=== PATIENT | male | born 1985 | race African-American/Black ===

== ENCOUNTER 2019-06-30 10:45 | Inpatient (IN) | payer OTHER ==
[2019-06-30 10:57] VITALS: BMI 31.0
--- NOTE | 2019-06-30 11:28 | HP ---
COWS - Scale Resting Pulse: 0= [place] 80 or Below Sweatin= Chills/Flushing Restless Observation: 1= Difficult to Sit Still Pupil Size: 1= Pupils >than Normal Bone or Joint Aches: 2= Severe Diffuse Aches Runny Nose/ Eye Tearin= Runny Nose/Eyes GI Upset > 30mins: 3= Vomiting/Diarrhea Tremor Observation: 2= Slight Tremor Visible Yawning Observation: 1= 1-2x During Session Anxiety or Irritability: 1=Feels Anxious/Irritable Goose Flesh Skin: 3=Piloerection COWS Score: 17 CIWA Score - Admission Criteria [facility] Guidelines: Admission for Medically Managed Detox: Requires at least one of the followin. CIWA greater than 12 2. Seizures within the past 24 hours 3. Delirium tremens within the past 24 hours 4. Hallucinations within the past 24 hours 5. Acute intervention needed for co occurring medical disorder 6. Acute intervention needed for co occurring psychiatric disorder 7. Severe withdrawal that cannot be handled at a lower level of care (continued vomiting, continued diarrhea, abnormal vital signs) requiring intravenous medication and/or fluids 8. Admission ROS [facility] Chief Complaint: I need detox Allergies/Adverse Reactions: Allergies Allergy/AdvReac Type Severity Reaction Status Date / Time No Known Allergies Allergy Verified 06/30/19 10:52 History of Present Illness: 33 year old male presents for detox from heroin. He reports his last detox treatment was at [facility] sometime last year. He denies previous overdose or seizures related to drug use. Exam Limitations: No Limitations - Ebola screening Have you traveled outside of the country in the last 21 days: No Have you had contact with anyone from an Ebola affected area: No Have you been sick,other than usual withdrawal symptoms: No Do you have a fever: No - Review of Systems Constitutional: Chills, Diaphoresis, Loss of Appetite EENT: reports: Blurred Vision, Nose Congestion Respiratory: reports: No Symptoms reported Cardiac: reports: No Symptoms Reported GI: reports: Poor Appetite, Poor Fluid Intake, Abdominal cramping : reports: No Symptoms Reported Musculoskeletal: reports: Back Pain, Joint Pain, Muscle Pain, Muscle Weakness Integumentary: reports: Flushing Neuro: reports: Tremors Endocrine: reports: No Symptoms Reported Hematology: reports: No Symptoms Reported Psychiatric: reports: No Sypmtoms Reported Other Systems: Reviewed and Negative Patient History - Patient Medical History Hx Anemia: No Hx Asthma: No Hx Chronic Obstructive Pulmonary Disease (COPD): No Hx Cancer: No Hx Cardiac Disorders: No Hx Congestive Heart Failure: No Hx Hypertension: No Hx Hypercholesterolemia: No Hx Pacemaker: No HX Cerebrovascular Accident: No Hx Seizures: No Hx Dementia: No Hx Diabetes: No Hx Gastrointestinal Disorders: No Hx Liver Disease: No Hx Genitourinary Disorders: No Hx Sexually Transmitted Disorders: No Hx Renal Disease (ESRD): No Hx Thyroid Disease: No Hx Human Immunodeficiency Virus (HIV): No Hx Hepatitis C: No Hx Depression: No Hx Suicide Attempt: No Hx Bipolar Disorder: No Hx Schizophrenia: No - Patient Surgical History Past Surgical History: No - PPD History Previous Implant?: Yes Documented Results: Negative w/o proof Implanted On Prior [facility] Admission?: No PPD to be Administered?: Yes - Smoking Cessation Smoking history: Current every day smoker Have you smoked in the past 12 months: Yes Aproximately how many cigarettes per day: 20 Hx Chewing Tobacco Use: No Initiated information on smoking cessation: Yes 'Breaking Loose' booklet given: 06/30/19 - Substances abused Heroin Substance route: Inhalation Frequency: Daily Amount used: 9 BAGS Age of first use: 17 Date of last use: 06/29/19 Admission Physical Exam [facility] - Vital Signs Vital Signs: Vital Signs - 24 hr 06/30/19 10:51 Temperature 99.1 F Pulse Rate 60 Respiratory 20 Rate Blood Pressure 153/99 - Physical General Appearance: Yes: No Apparent Distress, Tremorous HEENTM: Yes: Hearing grossly Normal, Normocephalic, Normal Voice, Pharynx Normal Respiratory: Yes: Chest Non-Tender, Lungs Clear, Normal Breath Sounds, No Respiratory Distress, No Accessory Muscle Use Neck: Yes: No masses,lesions,Nodules, Supple Breast: Yes: Breast Exam Deferred Cardiology: Yes: Regular Rhythm, Regular Rate, S1, S2 Abdominal: Yes: Normal Bowel Sounds, Non Tender Genitourinary: Yes: Within Normal Limits Back: Yes: Normal Inspection Musculoskeletal: Yes: full range of Motion, Gait Steady, Pelvis Stable, Back pain, Muscle Pain, Muscle weakness Extremities: Yes: Non-Tender, Tremors Neurological: Yes: sap hana architect II-XII NML intact, Fully Oriented, Alert, Normal Mood/ Affect, Normal Response Integumentary: Yes: Clammy Lymphatic: Yes: Within Normal Limits - Diagnostic (1) Heroin dependence Current Visit: Yes Status: Acute (2) Nicotine dependence Current Visit: Yes Status: Acute Qualifiers: Nicotine product type: cigarettes Substance use status: uncomplicated Qualified Code(s): F17.210 - Nicotine dependence, cigarettes, uncomplicated Cleared for Admission [facility] - Detox or Rehab [facility] Level of Care: Medically Managed Detox Regimen/Protocol: Methadone Claeared for Rehab Admission: No Breathalyzer - Breathalyzer Breathalyzer: 0 Urine Drug Screen - Test Device Lot number: [id number] Expiration date: 02/16/21 - Control Is test valid?: Yes - Results Drug screen NEGATIVE: Yes Urine drug screen results: THC-Marijuana, JOSE-Cocaine, FEN-Fentanyl, MOP-Opiates , BUP-Suboxone Inpatient Rehab Admission - Rehab Decision to Admit Inpatient rehab admission?: No
[2019-06-30] MEDS ORDERED: ACETAMINOPHEN 325 MG TABLET (FP) PO PRN ×2 (11:32)
[2019-06-30] MEDS ORDERED: MELATONIN 5 MG TABLETS PO PRN (11:32)
[2019-06-30] MEDS ORDERED: IBUPROFEN 400 MG TABLET (FP) PO PRN (11:32)
[2019-06-30] MEDS ORDERED: NICOTINE POLACRILEX 2 MG GUM BUC PRN (11:32)
[2019-06-30] MEDS ORDERED: MENTHOL/PHENOL 1 EACH UD MM PRN (11:32)
[2019-06-30] MEDS ORDERED: NALOXONE HCL 0.4 MG/ML VIAL IM PRN (11:32)
[2019-06-30] MEDS ORDERED: BISMUTH SUBSALICYLATE 524 MG/30 ML UD PO PRN (11:32)
[2019-06-30] MEDS ORDERED: MAGNESIUM CITRATE 300 ML BOTTLE PO PRN (11:32)
[2019-06-30] MEDS ORDERED: MAG HYDROX/AL HYDROX/SIMETH 30 ML UNIT-DOSE CUP PO PRN (11:32)
[2019-06-30] MEDS ORDERED: cloNIDine HCL 0.1 MG TABLET PO PRN (11:32)
[2019-06-30] MEDS ORDERED: METHOCARBAMOL 500 MG TABLET PO PRN (11:32)
[2019-06-30] MEDS ORDERED: MAGNESIUM HYDROX 2400MG/30ML ORAL SUSPENSION 30 ML CUP PO PRN (11:32)
[2019-06-30] MEDS ORDERED: METHADONE HCL 10 MG TABLET (FOR DETOX USE ONLY) PO ONE ×2 (12:00→20:20)
--- NOTE | 2019-06-30 12:24 | PN ---
[facility] Progress Note Note: Patient admitted for heroin detox, methadone regimen ordered. EKG pre-methadone administration came out abnormal; suggestive of acute OH / STEMI. EMS activated , report given to provider at [facility] ED. At time of admission patient denied chest pain, currently c/o chest pain. EMS at bedside.
[2019-06-30] MEDS: cloNIDine HCL 0.1 MG TABLET PO PRN (22:27)
[2019-06-30] MEDS: THIAMINE HCL 100 MG TABLET (FP) PO SCH (22:27)
[2019-06-30] MEDS: NICOTINE 7 MG/24 HOURS TOPICAL PATCH TD SCH (22:33)
[2019-07-01] MEDS ORDERED: METHADONE HCL 5 MG TABLET (FOR DETOX USE ONLY) PO ONE ×2 (10:00)
[2019-07-01] MEDS: PRENATAL VITAMINS W/ FOLIC ACID TABLET (FP) PO SCH (10:05)
[2019-07-01] MEDS: NICOTINE 7 MG/24 HOURS TOPICAL PATCH TD SCH (10:05)
[2019-07-01 10:23] LABS: HEMATOCRIT 42.5 % (35.4-49); MCH 28.9 pg (25.7-33.7); MCHC 32.9 g/dl (32.0-35.9); MEAN PLT VOLUME 10.4 fl (7.5-11.1); PLATELET COUNT 223 K/MM3 (134-434); RBC 4.83 M/mm3 (4.00-5.60); RDW 14.5 % (11.9-15.9); WHITE BLOOD COUNT 6.6 K/mm3 (4.0-10.0)
[2019-07-01 10:26] LABS: ALBUMIN 3.4 g/dl (3.4-5.0); BILIRUBIN,TOTAL 0.6 mg/dL (0.2-1); BLOOD UREA NITROGEN 11.7 mg/dL (7-18); CALCIUM 8.9 mg/dL (8.5-10.1); POTASSIUM 3.5 mmol/L (3.5-5.1); TOT PROT 6.8 g/dl (6.4-8.2)
--- NOTE | 2019-07-01 11:47 | PN ---
S COWS - Scale Resting Pulse: 0= [place] 80 or Below Sweatin= Beads of Sweat on Face Restless Observation: 1= Difficult to Sit Still Pupil Size: 0= Normal to Room Light Bone or Joint Aches: 2= Severe Diffuse Aches Runny Nose/ Eye Tearin= None GI Upset > 30mins: 0= None Tremor Observation of Outstretched Hands: 2= Slight Tremor Visible Yawning Observation: 1= 1-2x During Session Anxiety or Irritability: 2=Irritable/Anxious Goose Flesh Skin: 0=Smooth Skin COWS Score: 11 S Progress Note (SOAP) Subjective: c/o muscle aches, anxiety, irritability, and sweats. Objective: 07/01/19 11:47 Vital Signs 07/01/19 07/01/19 06:41 09:15 Temperature 97.2 F L 98.5 F Pulse Rate 50 L 54 L Respiratory 18 18 Rate Blood Pressure 138/87 130/83 Lab Results WBC 6.6 K/mm3 (4.0-10.0) 07/01/19 07:15 RBC 4.83 M/mm3 (4.00-5.60) 07/01/19 07:15 Hgb 14.0 GM/dL (11.7-16.9) 07/01/19 07:15 Hct 42.5 % (35.4-49) 07/01/19 07:15 MCV 88.0 fl (80-96) 07/01/19 07:15 MCHC 32.9 g/dl (32.0-35.9) 07/01/19 07:15 RDW 14.5 % (11.9-15.9) 07/01/19 07:15 Plt Count 223 K/MM3 (134-434) 07/01/19 07:15 Sodium 140 mmol/L (136-145) 07/01/19 07:15 Potassium 3.5 mmol/L (3.5-5.1) 07/01/19 07:15 Chloride 108 mmol/L (98-107) H 07/01/19 07:15 Carbon Dioxide 27 mmol/L (21-32) 07/01/19 07:15 Anion Gap 5 MMOL/L (8-16) L 07/01/19 07:15 BUN 11.7 mg/dL (7-18) 07/01/19 07:15 Creatinine 1.0 mg/dL (0.55-1.3) 07/01/19 07:15 Random Glucose 97 mg/dL (74-106) 07/01/19 07:15 Calcium 8.9 mg/dL (8.5-10.1) 07/01/19 07:15 Labs noted. Assessment: 07/01/19 11:47 AOX3, in no respiratory distress. Full ROM, ambulating in the unit. Withdrawal symptoms. Plan: continue detox.
[2019-07-01] MEDS ORDERED: FLU VACCINE QUAD 60 MCG/0.5 ML (MDV 19-20) IM ONE (12:00)
[2019-07-01] MEDS: THIAMINE HCL 100 MG TABLET (FP) PO SCH (22:17)
[2019-07-01] MEDS: cloNIDine HCL 0.1 MG TABLET PO PRN (22:18)
[2019-07-02] MEDS ORDERED: METHADONE HCL 10 MG TABLET (FOR DETOX USE ONLY) PO ONE ×2 (10:00)
[2019-07-02] MEDS: PRENATAL VITAMINS W/ FOLIC ACID TABLET (FP) PO SCH (10:42)
[2019-07-02] MEDS: NICOTINE 7 MG/24 HOURS TOPICAL PATCH TD SCH (10:42)
--- NOTE | 2019-07-02 13:06 | EKG ---
Test Reason : Blood Pressure : / mmHG Vent. Rate : 052 BPM Atrial Rate : 052 BPM P-R Int : 174 ms QRS Dur : 124 ms QT Int : 426 ms P-R-T Axes : -02 056 012 degrees QTc Int : 396 ms SINUS BRADYCARDIA ANTEROSEPTAL INFARCT , AGE UNDETERMINED ABNORMAL ECG NO PREVIOUS ECGS AVAILABLE Confirmed by SAMARA KEN MD ([id number]) on 07/02/2019 1:06:20 PM Referred By: Confirmed By:SAMARA KEN MD
--- NOTE | 2019-07-02 18:41 | PN ---
[facility] COWS - Scale Resting Pulse: 0= [place] 80 or Below Sweatin= No chills or Flushing Restless Observation: 0= Sits Still Pupil Size: 0= Normal to Room Light Bone or Joint Aches: 0= None Runny Nose/ Eye Tearin= None GI Upset > 30mins: 0= None Tremor Observation of Outstretched Hands: 0= None Yawning Observation: 1= 1-2x During Session Anxiety or Irritability: 0= None Goose Flesh Skin: 0=Smooth Skin COWS Score: 1 BHS Progress Note (SOAP) Subjective: Patient denies current Withdrawal / Detox symptoms and reports that he feels well overall at this time. Objective: PATIENT A & O X 3, OBSERVED AMBULATING ON DETOX UNIT UNASSISTED. IN NO ACUTE DISTRESS. 07/02/19 18:40 Vital Signs Temperature 98.1 F 07/02/19 17:07 Pulse Rate 61 07/02/19 17:07 Respiratory Rate 18 07/02/19 17:07 Blood Pressure 136/88 07/02/19 17:07 O2 Sat by Pulse Oximetry (%) Laboratory Tests 07/01/19 07/01/19 07/01/19 07:15 07:15 07:15 WBC 6.6 RBC 4.83 Hgb 14.0 Hct 42.5 MCV 88.0 MCH 28.9 MCHC 32.9 RDW 14.5 Plt Count 223 MPV 10.4 Sodium 140 Potassium 3.5 Chloride 108 H Carbon Dioxide 27 Anion Gap 5 L BUN 11.7 Creatinine 1.0 Est GFR (CKD-EPI)AfAm 113.31 Est GFR (CKD-EPI)NonAf 97.76 Random Glucose 97 Calcium 8.9 Total Bilirubin 0.6 AST 15 ALT 24 Alkaline Phosphatase 80 Total Protein 6.8 Albumin 3.4 RPR Titer Nonreactive LABS NOTED. Assessment: 07/02/19 18:41 WITHDRAWAL SYMPTOMS. Plan: CONTINUE DETOX. PATIENT SCHEDULED FOR D/C FROM DETOX UNIT TOMORROW.
[2019-07-02] MEDS: THIAMINE HCL 100 MG TABLET (FP) PO SCH (22:40)
[2019-07-03] MEDS ORDERED: METHADONE HCL 5 MG TABLET (FOR DETOX USE ONLY) PO ONE ×2 (06:00)
--- NOTE | 2019-07-03 08:53 | DS ---
[facility] Detox Discharge Summary Admission Date: 06/30/19 Discharge Date: 07/03/19 - History Present History: Opioid Dependence - Physical Exam Results Vital Signs: Vital Signs Temperature 97.7 F 07/03/19 06:15 Pulse Rate 58 L 07/03/19 06:15 Respiratory Rate 18 07/03/19 06:15 Blood Pressure 120/71 07/03/19 06:15 O2 Sat by Pulse Oximetry (%) - Treatment Hospital Course: Detox Protocol Followed, Detoxed Safely, Responded well, Discharged Condition Good - Medication Discharge Medications: Ambulatory Orders NK [No Known Home Medication] 06/30/19 - Diagnosis (1) Heroin dependence Current Visit: Yes Status: Chronic (2) Nicotine dependence Current Visit: Yes Status: Chronic Qualifiers: Nicotine product type: cigarettes Substance use status: uncomplicated Qualified Code(s): F17.210 - Nicotine dependence, cigarettes, uncomplicated - AMA Did Patient Leave Against Medical Advice: No
[2019-07-03 09:16] VITALS: BP 142/92; PULSE 54; TEMP 97.4
== END 2019-07-03 08:49 | disposition home or self-care (01) | DRG 773 ==
LOC: YASAS 10:45 → Y3N 11:48
PROVIDERS: ADMIT Allergy & Immunology; ATTEND Allergy & Immunology
PROC: HZ2ZZZZ Detoxification Services for Substance Abuse Treatment (ICD-10-PCS; principal; 2019-06-30)
DX: F11.23 Opioid dependence with withdrawal (principal); F17.210 Nicotine dependence, cigarettes, uncomplicated; R94.31 Abnormal electrocardiogram [ECG] [EKG]; R07.9 Chest pain, unspecified
CPT/HCPCS: 36415; 80053; 85027; 86593; 93005; 93010; J0735

== ENCOUNTER 2019-06-30 12:48 | Emergency (ER) | payer OTHER ==
[2019-06-30] MEDS ORDERED: ASPIRIN 81 MG CHEWABLE TABLETS PO ONE (13:17)
[2019-06-30 13:22] VITALS: BP 147/94; PULSE 56; TEMP 98.5; BMI 31.0
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
[2019-06-30] MEDS ORDERED: SODIUM CHLORIDE 1,000 ML IV STA (14:48)
--- NOTE | 2019-06-30 14:57 | PDOC ---
Documentation entered by Milena Guardado SCRIBE, acting as scribe for Claribel See MD. Claribel See MD: This documentation has been prepared by the Geo paulino Adrianna, SCRIBE, under my direction and personally reviewed by me in its entirety. I confirm that the documentation accurately reflects all work, treatment, procedures, and medical decision making performed by me. Attending Attestation - Resident Resident Name: Waldo Hill - ED Attending Attestation I have performed the following: I have examined & evaluated the patient, The case was reviewed & discussed with the resident, I agree w/resident's findings & plan, Exceptions are as noted - HPI HPI: The patient is a 33 year old , with a significant PMH of polysubstance abuse, who presents to the ED for evaluation of chest pain since this morning. Patient complains of sudden onset right-sided chest pain that is constant, crampy, and has transitioned from an 8/10 to a 4/10. He notes the pain does not radiate, but is tender to touch. Allergies: NKA, NKDA Surgical History: None reported Social History: Polysubstance abuse. Current daily smoker. - Physicial Exam PE: 06/30/19 14:54 Awake alert no acute distress lungs are clear bilaterally heart is regular with any murmurs rubs or gallops abdomen is soft nontender extremities are warm well perfused there is no noted peripheral edema or calf tenderness neurologically patient is awake alert and oriented x3 moving all 4 extremities - Medical Decision Making 06/30/19 14:55 33-year-old male history of polysubstance abuse including cocaine and opiate abuse which he states he inhales here from [facility] detox for complaint of chest pain. Patient states he was only there for a few hours described chest pain as a chest tightness or pinching feeling off to the right side no associated shortness of breath or diaphoresis no nausea no vomiting he has no not eating much lately no other current complaints states currently he is still having the pain Patient has a normal exam Differential includes cocaine intoxication, opiate withdrawal, ACS is less likely due to the patient's young age however will test with a troponin EKG chest x-ray CBC CMP Patient is difficult access will place right sided EJ IV 06/30/19 14:56 Heart Score/ECG Review #1 ECG reviewed & interpreted by me at: 14:57 General ECG Interpretation: Sinus Rhythm, Normal Rate, Normal Intervals, No acute ischemic changes (TWI III,)
[2019-06-30 14:58] LABS: BASO % 0.5 % (0-2.0); EOS % 0.7 % (0-4.5); HEMATOCRIT 43.7 % (35.4-49); HEMOGLOBIN 14.4 GM/dL (11.7-16.9); LYMPH % 13.6 % (8-40); MCH 28.9 pg (25.7-33.7); MEAN CELL VOLUME 87.6 fl (80-96); MEAN PLT VOLUME 10.2 fl (7.5-11.1); MONO % 8.8 % (3.8-10.2); NEUT % 76.4 % (42.8-82.8); PLATELET COUNT 258 K/MM3 (134-434); RBC 4.99 M/mm3 (4.00-5.60); RDW 14.5 % (11.9-15.9); WHITE BLOOD COUNT 9.4 K/mm3 (4.0-10.0)
[2019-06-30 15:11] LABS: INR 1.07 (0.83-1.09); PROTHROMBIN TIME (PATIENT) 12.6 SEC (9.7-13.0)
[2019-06-30 15:14] LABS: ACTIVATED PTT 32.7 SECONDS (25.2-36.5)
[2019-06-30 16:41] LABS: ALBUMIN 3.4 g/dl (3.4-5.0); BILIRUBIN,TOTAL 0.8 mg/dL (0.2-1); BLOOD UREA NITROGEN 10.5 mg/dL (7-18); CALCIUM 8.3 mg/dL (8.5-10.1); POTASSIUM 4.8 mmol/L (3.5-5.1); TOT PROT 7.2 g/dl (6.4-8.2)
--- NOTE | 2019-07-01 22:04 | EKG ---
Test Reason : Blood Pressure : / mmHG Vent. Rate : 045 BPM Atrial Rate : 045 BPM P-R Int : 174 ms QRS Dur : 112 ms QT Int : 452 ms P-R-T Axes : 000 041 008 degrees QTc Int : 390 ms SINUS BRADYCARDIA SEPTAL INFARCT , AGE UNDETERMINED ABNORMAL ECG NO PREVIOUS ECGS AVAILABLE Confirmed by Laila Daigle ([id number]) on 07/01/2019 10:03:58 PM Referred By: Confirmed By:Laila Daigle
== END 2019-06-30 19:52 | disposition home or self-care (01) ==
LOC: JER 12:48
PROC: 3E0337Z Introduction of Electrolytic and Water Balance Substance into Peripheral Vein, Percutaneous Approach (ICD-10-PCS; principal; 2019-06-30)
DX: R07.89 Other chest pain (principal); F11.10 Opioid abuse, uncomplicated; F14.10 Cocaine abuse, uncomplicated
CPT/HCPCS: 36415; 71046-TC-FY; 80053; 82550; 82553; 84484; 85025; 85610; 85730; 93005; 93010; 96360; 99284-25; J7030